=== PATIENT | male | born 1970 | race American Indian/Alaskan Native ===

== ENCOUNTER 2017-08-31 15:25 | Emergency (ER) | payer BC ==
--- NOTE | 2017-08-31 16:03 | Emergency Department Report ---
Chief Complaint: Extremity Injury, Lower Stated Complaint: LOWER EXTREMITY SWELLING Time Seen by Provider: 08/31/17 16:00 - HPI History of Present Illness: pt is a 47 y/o aaf with hx htn on lisinopril and hctz, seen by pcp 3 days ago rx for bilat duplex doppler r/o dvt pt stat near syncope yesterday increased sob , activity intolerance unable to climb stairs to work worsening over past 3 days. now calf ach and throb - Exam Vital Signs: Vital Signs 08/31/17 15:39 Temperature 98.2 F Pulse Rate 95 H Respiratory 18 Rate Blood Pressure 140/81 O2 Sat by Pulse 95 Oximetry MSE screening note: Focused history and physical exam performed. Due to findings the following was ordered: ED Disposition for MSE Condition: Stable
[2017-08-31 16:48] LABS: Basophils % (Auto) 0.7 % (0.0-1.8); Hematocrit 39.1 % (35.5-45.6); Hemoglobin 13.1 gm/dl (11.8-15.2); Mean Corpuscular HGB Conc 34 % (32-34); Mean Corpuscular Hemoglobin 27 pg (28-32); Mean Corpuscular Volume 82 fl (84-94); Platelet Count 392 K/mm3 (140-440); Red Blood Count 4.79 M/mm3 (3.65-5.03); Red Cell Distribution Width 14.2 % (13.2-15.2); White Blood Count 5.1 K/mm3 (4.5-11.0)
[2017-08-31 17:07] LABS: INR 0.92 (0.87-1.13)
[2017-08-31 17:08] LABS: Partial Thromboplastin Time 32.9 Sec. (24.2-36.6)
[2017-08-31 17:21] LABS: Alanine Aminotransferase 41 units/L (7-56); Albumin 4.2 g/dL (3.9-5); Albumin/Globulin Ratio 1.2 %; Alkaline Phosphatase 97 units/L (35-129); Anion Gap 18 mmol/L; BUN/Creatinine Ratio 11; Blood Urea Nitrogen 10 mg/dL (9-20); Calcium 9.1 mg/dL (8.4-10.2); Carbon Dioxide 31 mmol/L (22-30); Chloride 95.6 mmol/L (98-107); Glucose 153 mg/dL (75-100); Potassium 3.4 mmol/L (3.6-5.0); Sodium 141 mmol/L (137-145); Total Protein 7.6 g/dL (6.3-8.2)
--- NOTE | 2017-08-31 18:47 | XRay Report ---
FINAL REPORT EXAM: XR CHEST ROUTINE 2V HISTORY: sob TECHNIQUE: Two view chest PA and lateral PRIORS: None. FINDINGS: Cardiac and mediastinal contours are unremarkable. No focal pulmonary infiltrate is identified. No pleural fluid collection seen. Pulmonary vasculature is unremarkable. IMPRESSION: Negative two-view chest
[2017-09-01] MEDS ORDERED: K-DUR PO ONE (04:00)
[2017-09-01] MEDS ORDERED: PERCOCET 5/325 PO ONE (04:00)
[2017-09-01] MEDS ORDERED: NACL ONE (04:22)
[2017-09-01] MEDS ORDERED: TORADOL IV ONE (04:23)
--- NOTE | 2017-09-01 04:24 | Emergency Department Report ---
ED Extremity Problem HPI - General Chief complaint: Extremity Injury, Lower Stated complaint: LOWER EXTREMITY SWELLING Time Seen by Provider: 08/31/17 16:00 Source: patient Mode of arrival: Ambulatory Limitations: No Limitations - History of Present Illness Initial comments: 47-year-old male with a past medical history of hypertension presents to Hospital complaining of lower extremity edema times one week. Since I provided at the [facility] office. Patient was started on hydrochlorothiazide, losartan, and Bactrim on the . Patient also has been trying to elevate his legs and reports no improvement. For the last 2 weeks patient has noticed increased shortness of breath with exertion. Patient also states he has been told he stops breathing in his sleep and on occasion wakes up short of breath. No chest pain or recent travel reported. Patient complains of pedal edema extending up to bilateral legs with bilateral medial ankle pain, redness, and warmth. Symptoms worse on the right side. No trauma reported. PMD ordered outpatient vascular ultrasound and arterial Doppler to be performed this week. Patient also scheduled for outpatient rheumatology evaluation Severity scale (0 -10): 0 - Related Data Home Medications Medication Instructions Recorded Confirmed Last Taken Hydrochlorothiazide [HCTZ] 25 mg PO QDAY 09/01/17 09/01/17 08/31/17 Losartan Potassium 50 mg PO DAILY 09/01/17 09/01/17 08/31/17 Sulfamethoxazole/Trimethoprim 1 each PO BID 09/01/17 09/01/17 08/31/17 [Bactrim Ds Tablet] Previous Rx's Medication Instructions Recorded Last Taken Type Ibuprofen [Motrin] 800 mg PO Q8HR PRN #30 tablet 09/01/17 Unknown Rx Potassium Chloride [K-Dur] 20 meq PO QDAY #4 tablet 09/01/17 Unknown Rx traMADol [Ultram 50 MG tab] 50 mg PO Q6HR PRN #20 tablet 09/01/17 Unknown Rx Allergies Allergy/AdvReac Type Severity Reaction Status Date / Time Penicillins AdvReac Swelling Verified 09/01/17 04:24 ED Review of Systems ROS: Stated complaint: LOWER EXTREMITY SWELLING Other details as noted in HPI Comment: All other systems reviewed and negative Other: Constitutional: No fevers chills Eyes: No eye pain visual changes ENT: No ear pain or throat pain Neck: Denies pain Respiratory: Denies cough wheezing Cardiovascular: Denies chest pain, palpitations, syncope GI: Denies abdominal pain, nausea, vomiting, diarrhea : Denies dysuria Musculoskeletal: as per hpi Skin: as per hpi Neurologic: Denies headache, numbness, weakness Psychiatric: Denies suicidal ideation, hallucinations ED Past Medical Hx - Past Medical History Previous Medical History?: Yes Hx Hypertension: Yes - Surgical History Past Surgical History?: No - Social History Smoking Status: Never Smoker Substance Use Type: None - Medications Home Medications: Home Medications Medication Instructions Recorded Confirmed Last Taken Type Hydrochlorothiazide [HCTZ] 25 mg PO QDAY 09/01/17 09/01/17 08/31/17 History Ibuprofen [Motrin] 800 mg PO Q8HR PRN #30 tablet 09/01/17 Unknown Rx Losartan Potassium 50 mg PO DAILY 09/01/17 09/01/17 08/31/17 History Potassium Chloride [K-Dur] 20 meq PO QDAY #4 tablet 09/01/17 Unknown Rx Sulfamethoxazole/Trimethoprim 1 each PO BID 09/01/17 09/01/17 08/31/17 History [Bactrim Ds Tablet] traMADol [Ultram 50 MG tab] 50 mg PO Q6HR PRN #20 tablet 09/01/17 Unknown Rx ED Physical Exam - General Limitations: No Limitations - Other Other exam information: General: No limitations, patient is alert in no acute distress Head exam: Atraumatic, normocephalic Eyes exam: Normal appearance, pupils equal reactive to light, extraocular movements intact ENT: Moist mucous membrane, normal oropharynx Neck exam: Normal inspection, full range of motion, no meningismus nontender Respiratory exam: Clear to auscultation bilateral, no wheezes, rales, crackles Cardiovascular: Normal rate and rhythm, normal heart sounds Abdomen: Soft, nondistended, and nontender, with normal bowel sounds, no rebound, or guarding Extremity: Bilateral lower extremity edema 2-3+ pitting works at the feet. Bilateral medial ankle erythema, warmth, and tenderness. Palpable DP pulses also audible with Doppler. Back: Normal Inspection, full range of motion, no tenderness Neurologic: Alert, oriented x3, cranial nerves intact, no motor or sensory deficit Psychiatric: normal affect, normal mood Skin: Warm, dry, intact ED Course Vital Signs 08/31/17 09/01/17 09/01/17 15:39 00:19 03:21 Temperature 98.2 F 98.1 F Pulse Rate 95 H 85 Respiratory 18 18 Rate Blood Pressure 140/81 131/74 O2 Sat by Pulse 95 97 96 Oximetry 09/01/17 09/01/17 09/01/17 03:23 03:30 04:00 Temperature Pulse Rate 76 76 76 Respiratory 19 15 14 Rate Blood Pressure 113/75 122/71 120/75 O2 Sat by Pulse 95 98 Oximetry 09/01/17 09/01/17 09/01/17 04:30 05:18 05:19 Temperature Pulse Rate 75 Respiratory 16 20 20 Rate Blood Pressure 122/71 O2 Sat by Pulse Oximetry - Reevaluation(s) Reevaluation #1: 09/01/17 05:42 Patient received by mouth potassium, Percocet, and Toradol in the ED ED Medical Decision Making - Lab Data Result diagrams: 08/31/17 16:02 08/31/17 16:02 Lab Results 08/31/17 08/31/17 08/31/17 Range/Units 16:02 16:02 16:02 WBC 5.1 (4.5-11.0) K/mm3 RBC 4.79 (3.65-5.03) M/mm3 Hgb 13.1 (11.8-15.2) gm/dl Hct 39.1 (35.5-45.6) % MCV 82 L (84-94) fl MCH 27 L (28-32) pg MCHC 34 (32-34) % RDW 14.2 (13.2-15.2) % Plt Count 392 (140-440) K/mm3 Lymph % (Auto) 49.9 H (13.4-35.0) % [place] % (Auto) 8.4 H (0.0-7.3) % Eos % (Auto) 4.0 (0.0-4.3) % Baso % (Auto) 0.7 (0.0-1.8) % Lymph # 2.6 (1.2-5.4) K/mm3 [place] # 0.4 (0.0-0.8) K/mm3 Eos # 0.2 (0.0-0.4) K/mm3 Baso # 0.0 (0.0-0.1) K/mm3 Seg Neutrophils % 37.0 L (40.0-70.0) % Seg Neutrophils # 1.9 (1.8-7.7) K/mm3 PT 12.8 (12.2-14.9) Sec. INR 0.92 (0.87-1.13) APTT 32.9 (24.2-36.6) Sec. Sodium 141 (137-145) mmol/L Potassium 3.4 L (3.6-5.0) mmol/L Chloride 95.6 L (98-107) mmol/L Carbon Dioxide 31 H (22-30) mmol/L Anion Gap 18 mmol/L BUN 10 (9-20) mg/dL Creatinine 0.9 (0.8-1.5) mg/dL Estimated GFR > 60 ml/min BUN/Creatinine Ratio 11 % Glucose 153 H (75-100) mg/dL Calcium 9.1 (8.4-10.2) mg/dL Total Bilirubin 0.30 (0.1-1.2) mg/dL AST 30 (5-40) units/L ALT 41 (7-56) units/L Alkaline Phosphatase 97 (35-129) units/L Troponin T < 0.010 (0.00-0.029) ng/mL NT-Pro-B Natriuret Pep < 5 (0-450) pg/mL Total Protein 7.6 (6.3-8.2) g/dL Albumin 4.2 (3.9-5) g/dL Albumin/Globulin Ratio 1.2 % - EKG Data -: EKG Interpreted by [facility] EKG shows normal: sinus rhythm, axis (-15), QRS complexes (120), ST-T waves (no ST elevation, inferior T wave) Rate: normal (69) - EKG Data When compared to previous EKG there are: previous EKG unavailable - Radiology Data Radiology results: report reviewed (chest x-ray: No acute findings) Preliminary Doppler bilateral lower extremities: No DVT CT angiogram chest: No evidence of pulmonary embolus or aortic dissection. No acute process of the chest - Medical Decision Making Gout, cellulitis also in the differential Patient has lower extremity edema with erythema to medial ankles. Patient is already on actually for cellulitis. It is also possible that the findings may represent a primary rheumatologic problem or gout. No acute DVT, heart failure , renal failure, liver failure, or PE identified today. Patient will be given medications for pain and potassium supplementation for several days. Continued outpatient follow-up evaluation will be encouraged. Patient has upcoming vascular exam scheduled - Differential Diagnosis PE, DVT, liver failure, renal failure, heart failure, autoimmune disorder, Critical Care Time: No Critical care attestation.: If time is entered above; I have spent that time in minutes in the direct care of this critically ill patient, excluding procedure time. ED Disposition Clinical Impression: Bilateral leg edema, Ankle cellulitis, Hypokalemia Disposition: TO HOME OR SELFCARE Is pt being admited?: No Does the pt Need Aspirin: No Condition: Stable Instructions: Cellulitis (ED), Leg Edema (ED), Hypokalemia (ED) Additional Instructions: Continue current medications and the medications prescribed. Follow up with her primary care doctor for further evaluation. Please return if symptoms worsen. Prescriptions: Ibuprofen [Motrin] 800 mg PO Q8HR PRN #30 tablet PRN Reason: Pain Potassium Chloride [K-Dur] 20 meq PO QDAY #4 tablet traMADol [Ultram 50 MG tab] 50 mg PO Q6HR PRN #20 tablet PRN Reason: Pain Referrals: KATHRIN TAN MD [Primary Care Provider] - 2-3 Days
[2017-09-01 06:42] VITALS: BP 116/69
--- NOTE | 2017-09-01 08:04 | Vascular Lab Report ---
LOWER EXTREMITY VENOUS DUPLEX: REASON FOR EXAM: Swelling of the lower extremities. COMMENTS ON THE RIGHT: All veins visualized are freely compressible without evidence of internal echogenicity. Flow is spontaneous and phasic throughout. COMMENTS ON THE LEFT: All veins visualized are freely compressible without evidence of internal echogenicity. Flow is spontaneous and phasic throughout. IMPRESSION: No evidence of acute or chronic deep venous thrombosis in either lower extremity.
--- NOTE | 2017-09-01 11:39 | Cat Scan Report ---
FINAL REPORT EXAM: CT ANGIOGRAPHY CHEST HISTORY: SOB LEG EDEMA TECHNIQUE: A CT angiogram was performed following the intravenous injection of 100 cc of Omnipaque 350. MIP sagittal and coronal reconstructions were reviewed. FINDINGS: The lungs are clear. There is no evidence of pulmonary embolus or aortic dissection. The heart size is normal. There is no evidence of adenopathy. There is no evidence of pericardial or pleural effusion. In the upper abdomen the adrenal glands appear normal. At the thoracic inlet the thyroid gland appears normal. The skeletal structures are well-maintained IMPRESSION: No evidence of pulmonary embolus or aortic dissection. No acute process in the chest.
== END 2017-09-01 07:20 | disposition home or self-care (01) ==
LOC: ED 15:25
DX: R60.0 Localized edema (principal); L03.116 Cellulitis of left lower limb; L03.115 Cellulitis of right lower limb; E87.6 Hypokalemia; I10 Essential (primary) hypertension; Z88.0 Allergy status to penicillin
CPT/HCPCS: 36415; 71020; 71275; 80053; 83880; 84484; 85025; 85610; 85730; 93005; 93010; 93970; 96374; 99284; J1885; Q9967